=== PATIENT | male | born 2005 | race Caucasian/White ===

== ENCOUNTER 2024-05-05 17:17 | Observation (INO) | payer OTHER, SELFPAY ==
--- NOTE | ~2024-05-05 | CT_ITS ---
CT abdomen pelvis w con Ordering provider: Kaylyn Ortiz PA-C History: 19 years Male with . RLQ pain, N/V . Comparison: None. Technique: CT abdomen and pelvis with IV and without oral contrast. Automated exposure control and it erative reconstruction technique were employed. The dose-length product was 285.90 mGy-cm. 100 mL Omn ipaque 350 were given IV. Findings: VISUALIZED LOWER CHEST: Normal. UPPER ABDOMINAL ORGANS: Liver: Normal. Gallbladder: Normal. Spleen: Normal. Stomach/duodenum: Normal. Pancreas: Normal. Adrenals: Normal. Kidneys: Normal. PELVIC ORGANS: The bladder is underfilled. BOWEL AND MESENTERY: Colon: No evidence of diverticulitis. Loaded colon with fecal material suggestive of constipation. Hy podense tubular area seen in the right lower quadrant which is measuring 1.2 cm. This may represent a n obstructed appendix Small Bowel: Normal. No obstruction. Peritoneum/mesentery: No free air. Free fluid is seen in the pelvis. No mesenteric lymphadenopathy. RETROPERITONEUM: Normal aorta. No retroperitoneal lymphadenopathy. MUSCULOSKELETAL: Superficial soft tissues: The superficial soft tissues are normal. Bones: Normal spine. IMPRESSION: 1. Tubular fluid-filled structure seen in the right lower quadrant which may be the appendix and whi ch may indicate appendicitis.Free fluid seen in the pelvis. Clinical correlation advised. Reviewed, dictated and finalized at location A. IMPRESSION: 1. Tubular fluid-filled structure seen in the right lower quadrant which may b e the appendix and which may indicate appendicitis.Free fluid seen in the pelvi s. Clinical correlation advised.
[2024-05-05 17:18] VITALS: BP 140/74; PULSE 106; RESP 20; TEMP 36.2; O2SAT 98
--- NOTE | 2024-05-05 17:23 | ED.ABDPAIN ---
HPI - Abdominal Pain General Chief Complaint: Abdominal Pain <JOHN Serrano Last Filed: 05/05/24 17:26> Stated Complaint: mid abd pain <JOHN Serrano Last Filed: 05/05/24 17:26> Time Seen by Provider: 05/05/24 17:20 <JOHN Serrano Last Filed: 05/05/24 17:26> Focused HPI: Patient is a 19 y/o male who presents to the ED with c/o lower abd pain. Patient reports he took psilocybin mushrooms last night. He then woke up this morning with pain throughout his periumbilical region/lower abdomen. Reports decreased appetite, N/V today. Unable to keep down any food or drink. Also reports mild constipation, states he last had a BM a few days ago. Denies fevers today but does report chills/diaphoresis. GENERAL: Well-appearing, well-nourished, and in no acute distress. HEAD: Normocephalic, atraumatic. CHEST: Clear to auscultation. ?No respiratory distress. HEART: Regular rate and rhythm. ABD: Mild tenderness throughout periumbilical region, epigastric region. No rebound. Normoactive BS.? NEURO: ?Alert and oriented x3. Patient screened in triage and initial orders placed.? ?Additional care and disposition to be based upon?diagnostic testing and treatment. <JOHN Serrano Last Filed: 05/05/24 17:26> Source: patient <JOHN Serrano Last Filed: 05/05/24 17:26> Mode of arrival: ambulatory <JOHN Serrano Last Filed: 05/05/24 17:26> Limitations: no limitations <JOHN Serrano Last Filed: 05/05/24 17:26> History of Present Illness HPI narrative: 19-year-old male presents to the emergency department with his mother at bedside for periumbilical abdominal pain that started this morning with associated nausea and vomiting. Patient states he is concerned is appendicitis, however does admit that he took psilocybin mushrooms yesterday and thinks he may have had some poisoning from them. He reports decreased appetite and difficulty keeping down food and fluids. Reports chills but denies known fever. Denies dysuria or hematuria. Last bowel movement a couple days ago. <Alena Gr PA-C - Last Filed: 05/06/24 02:29> Related Data Home Medications: Home Medications Medication Instructions Recorded Confirmed dextroamphetamine-amphetamine 15 15 mg PO BID 05/05/24 05/05/24 mg tablet (Adderall) <Kaylyn Ortiz PA-C - Last Filed: 05/05/24 17:26> Allergies/Adverse Reactions: Allergies Allergy/AdvReac Type Severity Reaction Status Date / Time cefuroxime Allergy Mild Unknown Verified 05/05/24 18:40 <Kaylyn Ortiz PA-C - Last Filed: 05/05/24 17:26> Review of Systems Review of Systems: CONSTITUTIONAL: Denies fever, chills, or sweats. EYES: Denies visual changes, redness, or discharge. ENT: Denies rhinorrhea, congestion, sore throat, or otalgia. CARDIOVASCULAR: Denies chest pain, palpitations, or edema. RESPIRATORY: Denies cough or dyspnea. GASTROINTESTINAL: See HPI GENITOURINARY: Denies dysuria or hematuria. SKIN: Denies rash or itching. MUSCULOSKELETAL: Denies back pain, joint pain, or myalgia. NEUROLOGIC: Denies headache, numbness, or weakness. PSYCHIATRIC: Denies anxiety or depression. <Alena Gr PA-C - Last Filed: 05/06/24 02:29> [facility] Social History Social History: Social History Smoking status: Current every day smoker Tobacco type: e-cigarettes/vaping Do You Feel Safe in your Home?: Yes Lack of Transportation: No Lack of Food: Never True Current Housing: I Have Housing Concerned About Future Housing: No Difficulty Paying Gas/Electric Bills: No Difficulty Paying for Meds: No Currently Unemployed: No Education: High School Diploma/GED Difficulty w/ Childcare or Family Care: No Spiritual care concerns: No <JOHN Serrano Last Filed: 05/05/24 17
[2024-05-05 17:36] LABS: Basophils Percent Auto 0.2 % (0.2-1.2); Eosinophils Absolute Auto 0.1 K/mm3 (0-0.3); Eosinophils Percent Auto 0.8 % (0-4.4); Hematocrit 42.5 % (42.0-52.0); Hemoglobin 15.3 g/dL (14.0-18.0); Immature Granulocyte Absolute 0.02 K/mm3 (0.00-0.031); Immature Granulocyte Percent A 0.2 % (0-0.5); Lymphocytes Absolute Auto 0.88 K/mm3 (0.9-3.2); Lymphocytes Percent Auto 8.4 % (18.3-44.2); Mean Corpuscular Hemoglobin 32.7 pg (26-34); Mean Corpuscular Volume 90.8 fl (80-100); Mean Platelet Volume 10.3 fl (7.4-10.4); Monocytes Absolute Auto 0.5 K/mm3 (0.1-0.6); Monocytes Percent Auto 4.9 % (2.6-8.5); Neutrophils Absolute Auto 8.9 K/mm3 (1.3-6.7); Neutrophils Percent Auto 85.5 % (45.5-73.1); Platelet Count Result 188 k/mm3 (150-375); Red Blood Count 4.68 M/mm3 (4.6-6.20); Red Cell Distribution Width 11.9 % (11.5-14.5); White Blood Count 10.4 K/mm3 (4.5-10.0)
[2024-05-05 17:53] LABS: Alanine Aminotransferase 21 U/L (6-50); Albumin Level 5.1 g/dL (3.5-5.1); Alkaline Phosphatase 71 U/L (38-126); Anion Gap 12 mmol/L (4-12); Aspartate Amino Transferase 25 U/L (17-59); Bilirubin,Total 0.8 mg/dL (0.2-1.3); Blood Urea Nitrogen 14 mg/dL (9-20); Calcium 9.5 mg/dL (8.4-10.2); Carbon Dioxide 24 mmol/L (22-30); Chloride 107 mmol/L (98-107); Estimated CRCL calculation 135 ml/min; Estimated Glomerular Filt Rate > 60; Glucose 109 mg/dL (65-110); Lipase 54 U/L (23-300); Potassium 4.1 mmol/L (3.4-5.0); Sodium 143 mmol/L (137-145)
[2024-05-05 18:30] LABS: Appearance Urine Clear (Clear); Bacteria Urine None Seen /hpf; Bilirubin Urine Negative (Negative); Blood Urine Negative (Negative); Color Urine Yellow (Yellow); Glucose Urine UA Negative (Negative); Ketones Urine 4+ mg/dL (Negative); Leukocyte Esterase Ur Negative LEU/UL (Negative); Mucus Urine Present /lpf; Need Manual Microscopic Reviewed; Nitrate Urine Negative (Negative); Protein Urine 1+ mg/dL (Negative); RBC Urine 0-2 /hpf (0-2); Squamous Epithelial Cell Urine None Seen /hpf (Few); WBC Urine 0-5 /hpf (0-3)
[2024-05-05 18:32] LABS: Specific Grav Ur 1.035 (1.001-1.035)
[2024-05-05 18:34] LABS: Add Urine Microscopic? YES
[2024-05-05] MEDS: SODIUM CHLORIDE 0.9% IV 1,000 ML 999 ML IV CONT ×2 (18:41→20:03)
[2024-05-05] MEDS: ONDANSETRON INJ 4 MG/2 ML VIAL IV PUSH (18:41)
[2024-05-05] MEDS: FAMOTIDINE 20 MG/2 ML VIAL IV PUSH (18:41)
[2024-05-05] MEDS: MORPHINE SULFATE (*CRX) 4 MG/ML INJ IV PUSH ×2 (20:03→21:42)
[2024-05-05] MEDS: PIPERACILLN/TAZ 3.375GM/NS50ML 3.375 GM/50 ML BAG IVPB (20:03)
--- NOTE | 2024-05-05 21:28 | ADMGEN ---
This patient, Bon Hsieh, was admitted to [facility] Room 324-02. Patient/family oriented to hospital policies and general routines including ID bracelet, bed and alarms, visiting hours, pain management, procedures, bathroom and other care routines, personal items, smoking policy, room service/diet, and visiting hours. Information on how to activate the Rapid Response Team has been discussed. Patient/Family are encouraged to report perceived risks to care and to ask questions if they do not understand what they are told or what they should do.
[2024-05-05] MEDS: SODIUM CHLORIDE 0.9% IV 1,000 ML 125 ML IV CONT (21:42)
[2024-05-05 22:00] VITALS: BP 123/66; PULSE 78; RESP 16; TEMP 36.1; O2SAT 96
[2024-05-05 22:09] VITALS: BMI 22.2
[2024-05-06] VITALS (7 sets, daily range): BP systolic 111–156; BP diastolic 52–96; PULSE 48–113; RESP 14–26; TEMP 36.2–36.9; O2SAT 96–100
[2024-05-06] MEDS: PIPERACILLN/TAZ 3.375GM/NS50ML 3.375 GM/50 ML BAG IVPB ×3 (02:34→14:17)
[2024-05-06] MEDS: SODIUM CHLORIDE 0.9% IV 1,000 ML 125 ML IV CONT (09:07)
--- NOTE | 2024-05-06 10:49 | PM.IMHP ---
H&P: HPI History of Present Illness Date/Time: 05/06/24 10:49 Chief Complaint: Abdominal pain Narrative: This is a 19-year-old man who presented to the ER last night with complaints of periumbilical abdominal pain. He reports waking up with the pain yesterday morning. Initially, the pain was mild and he did not pay much attention to this. As the day went on, his pain progressively got worse but remained in the periumbilical area. He developed nausea and vomiting. He admits to taking psilocybin mushrooms yesterday and was worried they were bad and caused his illness. Due to his progressive pain, he came into the ER for evaluation. Labs showed a WBC count of 10,400. CT scan of the abdomen and pelvis showed a 1.2 cm tubular-like fluid-filled structure in the RLQ that could be the appendix, which would indicate appendicitis. Free fluid also seen in the pelvis. He was admitted for surgical evaluation and further treatment in this setting. He is seen this morning and reports his abdominal pain has completely resolved after receiving Morphine. He was having aggravated pain with any movement and reportedly his abdomen was very tender in the lower abdomen. This has improved as well. He is not longer feeling nauseous. No previous abdominal surgeries. Review of Systems Review of Systems: All systems reviewed & are unremarkable except as noted in HPI and below PMFSH Past Medical History Medical History ADHD Anxiety and depression Surgical History Surgical History No pertinent past surgical history Social History Social History Smoking status: Current every day smoker Tobacco type: e-cigarettes/vaping Substance use: current Substance use type: marijuana Other substance usage details: psilocybin mushrooms and marijuana Last use: 05/04/24 Do You Feel Safe in your Home?: Yes Lack of Transportation: No Lack of Food: Never True Current Housing: I Have Housing Concerned About Future Housing: No Difficulty Paying Gas/Electric Bills: No Difficulty Paying for Meds: No Currently Unemployed: No Education: High School Diploma/GED Difficulty w/ Childcare or Family Care: No Spiritual care concerns: No Meds Home Medications and Allergies Home Medications Medication Instructions Recorded Confirmed Type dextroamphetamine-amphetamine 15 15 mg PO BID 05/05/24 05/05/24 History mg tablet (Adderall) Allergies Allergy/AdvReac Type Severity Reaction Status Date / Time cefuroxime Allergy Mild Unknown Verified 05/05/24 18:40 Vital Signs Vital Signs - 24 hr 05/05/24 17:18 05/05/24 22:00 05/06/24 05:00 Temperature 97.1 F L 97.0 F L 97.5 F L Pulse Rate 106 H 78 48 L Respiratory Rate 20 16 18 Blood Pressure 140/74 123/66 111/52 L Pulse Oximetry 98 96 96 Oxygen Delivery Room Air 05/06/24 09:37 Temperature Pulse Rate Respiratory Rate Blood Pressure Pulse Oximetry Oxygen Delivery Room Air Exam Const: General: comfortable and no acute distress Orientation/consciousness: patient oriented x3 HENMT: Head: normocephalic and atraumatic Ears: hearing grossly normal bilaterally Mouth: Yes moist mucous membranes Eyes: General: appearance normal, both eyes and all related structures Pupils: Equal, round and reactive pupils present Neck: Neck: normal visual inspection and full ROM Resp: Effort & Inspection: no respiratory distress Auscultation: clear to auscultation bilaterally Cardio: Rate: regular rate Rhythm: regular rhythm Heart sounds: S1 normal heart sound present and S2 normal heart sound present Peripheral pulses: Peripheral pulses 2+ throughout GI: Inspection: non-distended GI Palp: Yes Soft to palpation, Yes Tenderness to palpation present (GI) (RLQ and suprapubic), No Guarding due to palpation present (GI), Ye
[2024-05-06] MEDS: LORazepam INJ (*CRX) 2 MG/ML VIAL 0.5 MG IV PUSH (13:43)
[2024-05-06] MEDS: LACTATED RINGERS 1,000 ML 30 ML IV CONT ×2 (14:00→15:22)
--- NOTE | 2024-05-06 14:01 | WPDHPUPDATE1 ---
History and Physical Update Update Date/Time: 05/06/24 14:01 History and Physical has been reviewed, including an updated exam of the patient. There are NO changes in the patient's condition. Risks, benefits, and alternatives have been discussed and questions answered. Patient agrees to proceed with procedure.
--- NOTE | 2024-05-06 14:10 | WPDANESEPPF ---
Anes - Initial Pre Proc Eval Procedure: Operation Date: 05/06/24 15:00 Proposed Procedures p Laparoscopic Appendectomy - Dangelo Mariano MD Date/Time: 05/06/24 14:10 Surgeon: Dangelo Mariano MD Pre Op Diagnosis: Acute Appendicitis Patient Data Age: 19 Gender: M Height: 1.88 m Weight: 78.5 kg Last Vital Signs Temp 36.4 C L 05/06/24 05:00 Pulse 48 L 05/06/24 05:00 Resp 18 05/06/24 05:00 BP 111/52 L 05/06/24 05:00 Pulse Ox 96 05/06/24 05:00 O2 Del Method Room Air 05/06/24 09:37 Allergies Allergy/AdvReac Type Severity Reaction Status Date / Time cefuroxime Allergy Mild Unknown Verified 05/05/24 18:40 Home Medications Medication Instructions Recorded Confirmed Type dextroamphetamine-amphetamine 15 15 mg PO BID 05/05/24 05/05/24 History mg tablet (Adderall) Laboratory Tests 05/05/24 05/05/24 17:29 17:51 WBC 10.4 H K/mm3 (4.5-10.0) RBC 4.68 M/mm3 (4.6-6.20) Hgb 15.3 g/dL (14.0-18.0) Hct 42.5 % (42.0-52.0) MCV 90.8 fl (80-100) MCH 32.7 pg (26-34) MCHC 36.0 g/dl (32-36) RDW 11.9 % (11.5-14.5) Plt Count 188 k/mm3 (150-375) MPV 10.3 fl (7.4-10.4) Immature Gran % (Auto) 0.2 % (0-0.5) Neut % (Auto) 85.5 H % (45.5-73.1) Lymph % (Auto) 8.4 L % (18.3-44.2) [place] % (Auto) 4.9 % (2.6-8.5) Eos % (Auto) 0.8 % (0-4.4) Baso % (Auto) 0.2 % (0.2-1.2) Lymph # (Auto) 0.88 L K/mm3 (0.9-3.2) [place] # (Auto) 0.5 K/mm3 (0.1-0.6) Eos # (Auto) 0.1 K/mm3 (0-0.3) Baso # (Auto) 0.0 K/mm3 (0.0-0.1) Abs Immat Gran (auto) 0.02 K/mm3 (0.00-0.031) Absolute Neuts (auto) 8.9 H K/mm3 (1.3-6.7) Absolute Nucleated RBC 0.000 K/mm3 (0.0-0.012) Nucleated RBC % 0.0 % (0.0-0.2) Sodium 143 mmol/L (137-145) Potassium 4.1 mmol/L (3.4-5.0) Chloride 107 mmol/L (98-107) Carbon Dioxide 24 mmol/L (22-30) Anion Gap 12 mmol/L (4-12) BUN 14 mg/dL (9-20) Creatinine 0.80 mg/dL (0.7-1.3) Estim Creat Clear Calc 135 ml/min Estimated GFR > 60 (59 - ) Glucose 109 mg/dL (65-110) Calcium 9.5 mg/dL (8.4-10.2) Total Bilirubin 0.8 mg/dL (0.2-1.3) AST 25 U/L (17-59) ALT 21 U/L (6-50) Alkaline Phosphatase 71 U/L (38-126) Total Protein 8.0 g/dL (6.3-8.2) Albumin 5.1 g/dL (3.5-5.1) Lipase 54 U/L (23-300) Urine Color Yellow (Yellow) Urine Appearance Clear (Clear) Urine pH 6.0 (5.0-9.0) Ur Specific [place] 1.035 (1.001-1.035) Urine Protein 1+ H mg/dL (Negative) Urine Glucose (UA) Negative mg/dL (Negative) Urine Ketones 4+ H mg/dL (Negative) Ur Blood (Man) Negative (Negative) Urine Nitrate Negative (Negative) Urine Bilirubin Negative (Negative) Urine Urobilinogen 1.0 mg/dL (<2.0) Add Ur Microanalysis Reviewed Leukocyte Esterase Rfl Negative ROSIE/UL (Negative) Urine RBC 0-2 /hpf (0-2) Urine WBC 0-5 /hpf (0-3) Ur Squamous Epith Cells None seen /hpf (Few) Urine Bacteria None seen /hpf Urine Casts 3-5 Urine Mucus Present /lpf Patient hx anesthesia problems: none Family hx anesthesia problems: none Results Review: All pre-operative results and documents have been reviewed as part of the pre-operative evaluation. PMFSH Past Medical History Medical History ADHD Anxiety and depression Surgical History Surgical History No pertinent past surgical history Social History Social History Smoking status: Current every day smoker
[2024-05-06] MEDS: LIDO 1%/EPINEPHRINE 1:100,000 50 ML VIAL 30 ML INFILTRATE (14:53)
[2024-05-06] MEDS: KETOROLAC 15 MG/ML VIAL (*BKC) IV PUSH (14:59)
--- NOTE | 2024-05-06 15:24 | W.PM.PROC2 ---
Procedure Note - Detailed Date of Procedure 05/06/24 Pre-op Diagnosis Acute Appendicitis Post-op Diagnosis Same Procedure Performed Laparoscopic appendectomy Surgeon Dangelo Mariano MD Stretching Machine Operator Valerie Venegas [facility] Anesthesia General Indications Patient is a 19-year-old white male who presents to the emergency room last evening of progressively worsening periumbilical abdominal pain which localized to right lower quadrant the abdomen. Had a minimally elevated white blood count 37499. CT scan abdomen pelvis which done showing a 1.2cm dilated fluid-filled structure in the right lower quadrant which could be the appendix. On examination he had tenderness in the right lower quadrant of the area the appendix and presents now for emergent laparoscopic appendectomy. Findings Patient had a dilated and mildly inflamed appendix without perforation abscess or gangrene. Description of Procedure After informed consent was obtained patient brought to the operating room was placed supine position and general endotracheal anesthesia was administered. A Martin catheter was placed decompress the bladder. The abdomen was then prepped and draped usual sterile fashion. A time-out was then performed correctly identifying the patient as well as procedure to be performed. He was already on scheduled IV antibiotics. I then entered the abdomen left upper quadrant utilizing a 5mm Optiview port. Once inside the abdomen insufflated to adequate pneumoperitoneum of 15mmHg of CO2. Looking down into the area the right lower quadrant there were no adhesions to obscure the cecum or the appendix. I then placed a 5 12mm periumbilical trocar port as well as 2 more 5mm trocar ports in the suprapubic region and the right lower quadrant all under direct visualization. Working through these port sites use laparoscopic instruments to retract the cecum cephalad to find the appendix. The appendix was mildly inflamed with erythema and some swelling but no evidence of perforation or gangrene. I held the appendix up a laparoscopic grasper and then made a defect through the mesoappendix utilizing a [place] dissector. I then used a 45mm Endo-VIOLA stapler to divide the appendix flush with the cecum. The mesoappendix the wound divided with a vascular reload to the Endo-VIOLA stapler. Both staple lines were then hemostatic. I then placed the appendix into Endo-Catch bag and brought out through the periumbilical trocar port site. The appendix passed off table sent to pathology for examination. I then irrigated out the right lower quadrant the abdomen with sterile saline solution. Hemostasis on the staple lines was good. I then aspirated the fluid from the pelvis and the right lower quadrant. I then proceeded to remove all the trocar ports under visualization all port sites appeared hemostatic. I then allowed the abdomen decompress. The port sites and irrigated sterile saline solution hemostatic. I then closed the 12mm periumbilical trocar port fascial defect utilizing 0 Vicryl suture placed in a figure-eight fashion. I then closed the port site skin level utilizing a running subcuticular 4-0 Monocryl suture. The incisions were then cleaned the skin is fine. The patient tolerated the procedure well no complications. All sponges, needles, and instrument counts were correct at the end procedure. EBL was _10__cc. The patient was awakened and taken to recovery in stable and satisfactory condition. Implants None Estimated Blood Loss 10 Drains No Packing No Pathology Yes (Appendix to pathology) Complications No immediate complications Condition Stable Disposition PACU [facility] Billing Surgery - Charge Forward: Surgery Billing
[2024-05-06] MEDS: MORPHINE SULFATE (*CRX) 4 MG/ML INJ IV PUSH (16:39)
[2024-05-06] MEDS: ONDANSETRON INJ 4 MG/2 ML VIAL IV PUSH (16:39)
--- NOTE | 2024-05-13 16:18 | PM.DS ---
DS: Admitting Diagnosis Discharge Date 05/06/24 Admitting Diagnosis Lower abdominal pain, abnormal CT scan, DS: Discharge Diagnosis Discharge Diagnosis (1) Acute appendicitis: Qualifiers: Acute appendicitis type: with localized peritonitis Appendicitis abscess presence: without abscess Appendicitis gangrene presence: without gangrene Appendicitis perforation presence: without perforation Qualified Code(s): K35.30 - Acute appendicitis with localized peritonitis, without perforation or gangrene Code(s): K35.80 - Unspecified acute appendicitis Status: Acute DS: Summary Hospital Course Reason for hospitalization: Lower abdominal pain Hospital Course: patient presented emergency room with worsening lower abdominal pain. Work in the emergency room showed a white blood cell count and around 11,000. CT scan abdomen pelvis was performed showing a dilated tubular structure in the pelvis which was fluid-filled and could possibly be in acute appendicitis non ruptured. Is admitted to the hospital and kept NPO. Started on IV antibiotics and repeat white blood cell count was done the next morning. his pain was actually better next day but he was still having a little bit of pain in right lower quadrant. Given that he has a male without history kidney stones and still some mild pain in the right lower quadrant and given the findings on CT scan this and recommend proceeding with a laparoscopic appendectomy. He went to the operating room later today for laparoscopic appendectomy which was uneventful. He did have acute appendicitis which was mild. No perforation or necrosis of the appendix was seen. Postoperatively his course was uneventful and he went to the recovery room where he did well. He was then transferred back to surgical floor we did well overnight. On the surgical floor and advanced on diet without difficulty and was able to ambulate without difficulty. He is afebrile. His abdomen is suspected stand is clean dry and intact on his incisions and no evidence of any wound complications. He tolerated regular diet was discharged home later in the day. Status at Discharge Functional status at discharge: independent ambulation Overall status at discharge: patient is back to baseline Time Spent with Patient Time attestation: Total time spent providing and/or coordinating discharge services: Time spent: Less than 30 minutes Exam GI: Other: Abdomen is soft and nondistended. Port site incisions are healing well. No redness or drainage. Prior right lower quadrant pain is now resolved. DS: Data Data Completed and Pending Completed studies during hospitalization: Pending at discharge 05/06/24 14:00 Surgical [PTH] Routine Discharge Plan Discharge Attending physician on discharge: Dangelo Mariano Consulting providers: Sol Buck; Saad Suarez; Tru Love Discharging Clinician: Dangelo Mariano Anticipated Discharge Date/Time: 05/06/24 21:00 Patient Disposition: Home, Self-Care Activity: other - see discharge instructions Diet: as tolerated Wound Care Instructions: other - see discharge instructions Discharge Instructions: May discharge home when stable. Follow up with Dr. Mariano in the office in 2 weeks. Patient to call [phone] for an appointment. May shower in 24hours but do not soak incisions under water for 2 weeks. No lifting more than 10 to 15 lb for 2 weeks. May advance diet as tolerated. No driving for at least 3 days or until no longer taking any narcotic pain medication. Resume all home medications. Prescription for narcotic pain medicines will be sent to the patient's pharmacy if needed. May use Tylenol and/or ibuprofen in addition to or in place of narcotic pain medications for postoperative pain. Patient Instructions: Antibiotic Form, How to Stop Smoking (DC), Laparoscopic Appendectomy (DC) Stand Alone Forms: General Dischar
== END 2024-05-06 18:00 | disposition home or self-care (01) ==
LOC: ANHED 20:02 → ANH3MEDSUR 20:51
PROVIDERS: Physician Assistant; Admitting Provider Surgery; Emergency Provider Physician Assistant; PCP Pediatrics; Visit Provider Surgery
PROC: 0DTJ4ZZ Resection of Appendix, Percutaneous Endoscopic Approach (ICD-10-PCS; CPT 44970; principal; 2024-05-06 15:00)
DX: K35.80 Unspecified acute appendicitis (principal); F90.9 Attention-deficit hyperactivity disorder, unspecified type; F17.290 Nicotine dependence, other tobacco product, uncomplicated; F12.90 Cannabis use, unspecified, uncomplicated
CPT/HCPCS: 44970; 36415; 74177; 80053; 81001; 83690; 85025; 88304; 96361; 96365; 96375; 99285; G0378; J0330; J1100; J1885; J2060; J2250; J2270; J2405; J2543; J2704; J3010; J7030; J7120; Q9967